=== PATIENT | female | born 1965 | race Caucasian/White ===

== ENCOUNTER 2018-07-06 13:28 | Outpatient (CLI) | payer BC | END 2018-07-06 13:29 | disposition home or self-care (01) | LOC: C.PAT 13:28 | DX: N93.9 Abnormal uterine and vaginal bleeding, unspecified (principal) ==

== ENCOUNTER 2018-07-08 09:58 | Day surgery (SDC) | payer BC ==
[2018-07-06 13:38] VITALS: BMI 26.4
[2018-07-08] MEDS ORDERED: Propofol 10 mg/ml Inj (20 ML) ONE (10:08)
[2018-07-08] MEDS ORDERED: Midazolam 2 MG/2 ML VIAL ONE ×2 (10:09→11:14)
[2018-07-08] MEDS ORDERED: HYDROmorphone 0.5 mg/0.5 ml ISec IVP PRN (10:32)
[2018-07-08 11:55] VITALS: TEMP 98
[2018-07-08 11:57] VITALS: O2SAT 100
[2018-07-08 12:14] VITALS: PULSE 83
[2018-07-08 12:58] VITALS: BP 122/89; RESP 18
--- NOTE | 2018-07-08 22:09 | OP ---
PROCEDURE DATE: 07/08/2018 PREOPERATIVE DIAGNOSES: Abnormal uterine bleeding, fibroids, pelvic pain. POSTOPERATIVE DIAGNOSES: Abnormal uterine bleeding, fibroids, pelvic pain. ANESTHESIA: General LMA. SURGEON: Halima Nolan MD FELT STRIP FINISHER: None. OPERATIVE FINDINGS: An 8 to 10-week sized anteverted uterus. Bilateral ostia visualized. Submucosal mass noted within anterior cavity, approximately 1-cm black lesion within endometrial cavity, rule out endometritis, that is in close proximity to the left tubal ostium. SPECIMENS SENT TO PATHOLOGY: Endometrial curetting, endocervical curetting, submucosal myoma, and endometriotic lesion. ESTIMATED BLOOD LOSS: 10 mL. BLOOD PRODUCTS: None. COMPLICATIONS: None. DESCRIPTION OF PROCEDURE: The patient was taken to the operating room where she was given general anesthesia. Once it was found to be adequate, she was placed on the operating table in dorsal supine position with legs supported using stirrups. The patient was prepped and draped in the usual sterile fashion. A time-out was performed confirmed correct patient and correct procedure. Bimanual exam was performed with the above-mentioned findings. A Nash retractor was placed in the anterior and posterior fornix of the vagina. The cervix was adequately visualized. A single-tooth tenaculum was placed in the anterior lip of the cervix. Endocervical curettings were obtained with a Kevriveraian curette and sent to Pathology on [facility]. The uterus was then sounded. Following this, the cervix was sequentially dilated to allow for introduction of the hysteroscope under direct visualization. The lesions were noted. First, the black lesion close to the left tubal ostium was removed. Following that, the submucosal myoma using a MyoSure device was carefully resected. The hysteroscope was removed. Gentle curettage was done. The hysteroscope was then re-introduced. There was good hemostasis noted at the tenaculum puncture site. At the end of the procedure, all needle, sponge and instrument counts were noted to be correct x2. The patient tolerated the procedure well and was transferred to the recovery room in stable condition. Haliam Nolan MD
== END 2018-07-08 14:05 | disposition home or self-care (01) ==
LOC: C.SDS 09:58
PROVIDERS: ATTEND Obstetrics & Gynecology
DX: N93.9 Abnormal uterine and vaginal bleeding, unspecified (principal); D21.9 Benign neoplasm of connective and other soft tissue, unspecified
CPT/HCPCS: 58561; 88305; J1100; J1885; J2001; J2250; J2405; J2704; J3010